=== PATIENT | male | born 1960 | race American Indian/Alaskan Native ===

== ENCOUNTER 2016-06-11 10:48 | Inpatient (IN) | payer SELFPAY ==
[2016-06-11] MEDS ORDERED: PEPCID IV ONE (11:08)
--- NOTE | 2016-06-11 11:11 | Emergency Department Report ---
HPI - General Chief Complaint: Allergic Reaction Time Seen by Provider: 06/11/16 11:04 - HPI HPI: 56-year-old male presents to the emergency department through triage, driving himself in to be seen, with complaint of facial and lip swelling that began this morning. He denies any involvement of the tongue, throat or any feelings of shortness of breath and he does not have any problem swallowing or dealing with his own secretions. He denies any chest pain, fever, nausea or vomiting. The patient is on lisinopril for blood pressure. He denies any other past medical history. He does not have a primary care doctor. He took 50 mg oral Benadryl at about 9:30 PM this morning as treatment without relief. No recent travel or sick contacts at home. ED Review of Systems ROS: Stated complaint: ALLERGIC REACTION Other details as noted in HPI Comment: All other systems reviewed and negative Constitutional: denies: chills, fever Eyes: denies: eye pain, eye discharge, vision change ENT: other (facial and lip swelling). denies: throat pain Respiratory: denies: cough, shortness of breath, wheezing Cardiovascular: denies: chest pain, palpitations Gastrointestinal: denies: abdominal pain, nausea, diarrhea Genitourinary: denies: urgency, dysuria Musculoskeletal: denies: back pain, joint swelling, arthralgia Skin: pruritus, other (facial and lip swelling). denies: rash Neurological: denies: headache, weakness, paresthesias Physical Exam - Physical Exam Vital Signs: Vital Signs 06/11/16 10:53 Temperature 98.2 F Pulse Rate 92 H Respiratory 16 Rate Blood Pressure 163/100 O2 Sat by Pulse 99 Oximetry Physical Exam: GENERAL: The patient is well-developed well-nourished. HEENT: Normocephalic. Atraumatic. Extraocular motions are intact. Patient has moist mucous membranes. Pupils equal reactive to light bilaterally. No nystagmus. Oropharynx is clear. No drooling or trismus. Patient has moderate to severe swelling of the upper and lower lips as well as to the right side of the face on the cheek. NECK: Supple. Trachea is midline. CHEST/LUNGS: Clear to auscultation. There is no respiratory distress noted. HEART/CARDIOVASCULAR: Regular. There is no tachycardia. There is no gallop rub or murmur. ABDOMEN: Abdomen is soft, nontender. Patient has normal bowel sounds. There is no abdominal distention. SKIN: Patient has moderate to severe swelling of the upper and lower lips as well as to the right side of the face on the cheek. NEURO: The patient is awake, alert, and oriented. The patient is cooperative. The patient has no focal neurologic deficits. The patient has normal speech. MUSCULOSKELETAL: There is no tenderness or deformity. There is no limitation range of motion. There is no evidence of acute injury. ED Course Vital Signs 06/11/16 10:53 Temperature 98.2 F Pulse Rate 92 H Respiratory 16 Rate Blood Pressure 163/100 O2 Sat by Pulse 99 Oximetry ED Medical Decision Making - Lab Data Result diagrams: 06/11/16 11:20 06/11/16 11:20 - Medical Decision Making 56-year-old male presents to the emergency department with swelling of the face and lips that is most likely angioedema from lisinopril the patient just recently started taking last Wednesday. So far no involvement of the tongue or throat. Vital signs are stable. Given a dose of a pressure medication as he has some hypertension and will no longer be taking the lisinopril. However the patient will be admitted for further evaluation and monitoring to make sure that the angioedema does not progress to involve the airway. Patient accepted for admission by the hospitalist, Dr. Scales. - Differential Diagnosis anaphylaxis, angioedema, dental abscess Critical Care Time: No Critical care attestation.: If time is entered above; I have spent that time in minutes in the direct care of this critically ill patient, excluding procedure time. ED Disposition Clinical Impression: Angioedema Qualifiers: Encounter type: initial encounter Qualified Code(s): T78.3XXA - Angioneurotic edema, initial encounter Hypertension Qualifiers: Hypertension type: essential hypertension Qualified Code(s): I10 - Essential ( primary) hypertension Disposition: OP ADMITTED IP TO THIS HOSP Is pt being admited?: Yes Condition: Stable Instructions: Hypertension (ED) Time of Disposition: 13:13
[2016-06-11 11:31] LABS: Basophils % (Auto) 1.5 % (0.0-1.8); Eosinophils % (Auto) 2.3 % (0.0-4.3); Hemoglobin 10.3 gm/dl (11.8-15.2); Mean Corpuscular HGB Conc 33 % (32-34); Mean Corpuscular Hemoglobin 37 pg (28-32); Mean Corpuscular Volume 111 fl (84-94); Platelet Count 318 K/mm3 (140-440); Red Blood Count 2.79 M/mm3 (3.65-5.03); Red Cell Distribution Width 18.5 % (13.2-15.2)
--- NOTE | 2016-06-11 11:48 | Admit Criteria Form ---
Admission Criteria Documentation: HEAD AND NECK DISEASE [facility] Clinical Indications for Admission to Inpatient Care ( Place 'X' for any and all applicable criteria): Hospital admission is needed for appropriate care of the patient because of ANY ONE of the following (1)(2): [ ]I. Severe sinusitis as indicated by ANY ONE of the following (6)(13)(21) [ ]a) Suspected GLASS PRESSER infection [ ]b) Bacteremia [ ]c) Hemodynamic instability [ ]d) Outpatient and observation care antibiotic treatment have failed or are not considered appropriate [ ]e) Surgical drainage needed that cannot be performed on an outpatient basis or observation. setting [ ]f) Suspected orbital involvement [ ]II. Acute glaucoma unresponsive to emergency treatment that requires medication or other treatment beyond the scope of observation care (1) [ ]III. Severe eye infection or inflammation (eg, uveitis) which is unresponsive to emergency treatment and requires medication or other treatment beyond the scope of observation care (1)(2)(3)(4) [ ]IV. Severe epistaxis requiring posterior packing (5)(6) [ ]V. Acute bacterial labyrinthitis(6)(7) [ ]. Viral labyrinthitis with symptoms uncontrollable on an outpatient or observation care basis (6)(7) [ ]VII. Severe necrotizing external otitis unresponsive to outpatient and observation care treatment(6) [ ]VIII. Otitis media requiring treatment beyond the scope of outpatient and observation care, as indicated by presence or persistence of ANY ONE of the following(6)(8)(9): [ ]a) Hemodynamic instability [ ]b) Mastoiditis [ ]c) Suspected GLASS PRESSER infection [ ]d) Bacteremia [ ]e) Surgical drainage needed that cannot be performed as an outpatient. or in an observation setting. [ ]IX. Epiglottitis or supraglottitis(6)(11)(12)(13)(14) [ ]X. Stridor or laryngospasm (unresponsive to emergency management) (6)(11)( 12)(13)(14) [ ]XI. Acute pharyngitis or tonsillitis and ANY ONE of the following (14)(15)( 16): [ ]a) Hemodynamic instability remaining after emergency or observation level care (as appropriate) [ ]b) Surgical drainage needed that cannot be performed in outpatient or observation setting [ ]c) Mediastinitis [ ]d) Thrombophlebitis of internal jugular vein (Lemierre syndrome) [ ]XII. Sialoadenitis and ANY ONE of the following (17) (18) [ ]a) Hemodynamic instability remaining after emergency or observation level care(as appropriate) [ ]b) Surgical drainage needed that cannot be performed in outpatient or observation setting [ ]XIII. Airway blockage or inability to swallow (6)(12)(19)(20) [ ]XIV.Complicated infection indicated by ANY ONE of the following(6)(13)(21)(22 ): [ ]a) Abscess or swelling causing airway difficulty(12) [ ]b) Bacteremia [ ]c) Hemodynamic instability [ ]d) Suspected GLASS PRESSER infection [ ]e) Outpatient and observation care antibiotic treatment have failed or are not considered appropriate [ ]f) Surgical drainage needed that cannot be performed on an outpatient basis or observation setting [ ]g) Other management need that cannot be performed in outpatient or observation setting: [ ]XV. Severe trauma requiring inpatient medical treatment of eye, head, pharynx, or airway (1)(23)([phone]) [ ]XVI. Ischemic optic neuropathy(11) [X]XVII.Head or Neck Disease condition and ANY ONE of the following: [X]a) Symptom or finding for which emergency and observation care have failed or are not considered appropriate (Also use General Criteria: Observation Care as appropriate) [ ]b) Presence of ANY ONE of the following: [ ]i) A General Admission Criteria [ ]ii) A Pediatric General Admission Criteria The original [facility] content created by [facility] [employer] has been revised. The portions of the content which have been revised are identified through the use of italic text or in bold, and [facility] has neither reviewed nor approved the modified material. All other unmodified content is copyright [facility]. Please see references footnoted in the original [facility] edition 2016
[2016-06-11 11:51] LABS: Anion Gap 15 mmol/L; Blood Urea Nitrogen 6 mg/dL (9-20); Calcium 8.9 mg/dL (8.4-10.2); Carbon Dioxide 27 mmol/L (22-30); Chloride 102.8 mmol/L (98-107); Glucose 94 mg/dL (75-100); Potassium 3.7 mmol/L (3.6-5.0); Sodium 141 mmol/L (137-145)
[2016-06-11] MEDS ORDERED: NACL 0.9% 1000 ML 1,000 ML IV ONE (11:53)
[2016-06-11] MEDS ORDERED: APRESOLINE IV ONE (11:53)
--- NOTE | 2016-06-11 12:30 | History and Physical Report ---
History of Present Illness Chief complaint: My face is swollen History of present illness: 56 YO Male with HTN, presents to ED for evaluation. Pt states that he has experienced lip swelling that began this morning around 0900 hrs. Pt denies any swelling of the tongue, throat, drooling or any shortness of breath and he does not have any problem swallowing or dealing with his own secretions. PT denies chest pain, fever, nausea or vomiting, palpitations, syncope, or recent ill contacts. Past History Past Medical History: hyperthyroidism Past Surgical History: No surgical history, Other (reviewed) Social history: single. denies: smoking, alcohol abuse, prescription drug abuse Family history: diabetes, hypertension Medications and Allergies Allergies Allergy/AdvReac Type Severity Reaction Status Date / Time lisinopril Allergy Angioedema Verified 06/11/16 10:53 Active Meds: Active Medications Sodium Chloride (Nacl 0.9% 1000 Ml) 1,000 mls @ 125 mls/hr IV ONCE ONE Stop: 06/11/16 19:52 Last Admin: 06/11/16 12:07 Dose: 125 mls/hr Review of Systems All systems: negative Constitutional: other (facial swelling) Exam - Constitutional Vitals: Temp Pulse Resp BP Pulse Ox 98.2 F 85 16 168/104 99 06/11/16 10:53 06/11/16 12:06 06/11/16 10:53 06/11/16 12:06 06/11/16 10:53 General appearance: Present: no acute distress, well-nourished, other (Right facial swelling with right lip swelling) - EENT Eyes: Present: PERRL ENT: hearing intact, clear oral mucosa - Neck Neck: Present: supple, normal ROM - Respiratory Respiratory effort: normal Respiratory: bilateral: CTA - Cardiovascular Heart Sounds: Present: S1 & S2. Absent: rub, click - Extremities Extremities: pulses symmetrical, No edema Peripheral Pulses: within normal limits - Abdominal General gastrointestinal: Present: soft, non-tender, non-distended, normal bowel sounds Male genitourinary: Present: normal - Integumentary Integumentary: Present: clear, warm, dry - Musculoskeletal Musculoskeletal: gait normal, strength equal bilaterally - Psychiatric Psychiatric: appropriate mood/affect, intact judgment & insight - Neurologic Neurologic: CNII-XII intact, moves all extremities Results - Labs CBC & Chem 7: 06/11/16 11:20 04/13/17 11:20 Labs: Abnormal lab results 06/11/16 06/11/16 Range/Units 11:20 11:20 RBC 2.79 L (3.65-5.03) M/mm3 Hgb 10.3 L (11.8-15.2) gm/dl Hct 31.0 L (35.5-45.6) % MCV 111 H (84-94) fl MCH 37 H (28-32) pg RDW 18.5 H (13.2-15.2) % [place] % (Auto) 12.0 H (0.0-7.3) % BUN 6 L (9-20) mg/dL Creatinine 0.6 L (0.8-1.5) mg/dL Assessment and Plan - Patient Problems (1) Angioedema Current Visit: Yes Status: Acute Qualifiers: Encounter type: initial encounter Qualified Code(s): T78.3XXA - Angioneurotic edema, initial encounter Plan to address problem: Steroids, supportive care, aspiration precautions, d/c lisinopril. (2) Accelerated hypertension Current Visit: Yes Status: Acute (3) Accelerated hypertension Current Visit: Yes Status: Acute Plan to address problem: Monitor BP q shift, hydralazine prn, amlodipine scheduled. (4) DVT prophylaxis Current Visit: Yes Status: Acute
[2016-06-11] MEDS ORDERED: DULCOLAX PR PRN (12:35)
[2016-06-11] MEDS ORDERED: DUONEB 0.5 MG-3 MG/3 ML SOLN IH PRN (12:35)
[2016-06-11] MEDS ORDERED: ZOFRAN IV PRN (12:35)
[2016-06-11] MEDS ORDERED: TYLENOL PO PRN (12:35)
[2016-06-11] MEDS ORDERED: MILK OF MAGNESIA PO PRN (12:35)
[2016-06-11] MEDS ORDERED: APRESOLINE IV PRN (12:38)
[2016-06-11] MEDS ORDERED: PROVENTIL IH PRN (12:52)
[2016-06-12] MEDS: NORVASC PO SCH (10:06)
--- NOTE | 2016-06-12 12:13 | Progress Note ---
Assessment and Plan Assessment and plan: Patient is 56-year-old man history hypertension lisinopril presents with facial swelling. He's been treated with IV steroids but swelling still present. -Angioedema: Stop lisinopril and observe -Accelerated hypertension: Start Norvasc -Anemia macrocytosis: Follow-up [facility] Anticipate discharge tomorrow if his swellings improve History Interval history: Patient seen and examined. Follow up on face swelling which is still present. No throat swelling. Facial swelling which is still present Overnight uneventful. No cp, sob, n/v or severe headaches. Imaging, old records, testing, labs, nursing notes reviewed. Plan discussed with patient. Hospitalist Physical - Physical exam Narrative exam: GEN: WDWN, NAD, AWAKE, ALERT, ORIENTATED 3 HEENT: Left-sided face and lips are swollen PERRL, EOMI, OP CLEAR NECK: SUPPLE, NO THYROMEGALY, NO JVD, NO LAD CVS: RRR, NORMAL S1S2 LUNGS/CHEST: CTA B, NORMAL CHEST EXPANSION B, GOOD AIR ENTRY B ABD: SOFT NTND, GBS, NO REBOUND OR GUARDING EXT/SKIN: NO SIGNIFICANT EDEMA OR RASH MSK: FROM X 4 EXTREMITIES NEURO: CN 2-12 GROSSLY INTACT, NO new FOCAL DEFICITS PSY: CALM - Constitutional Vitals: Temp Pulse Resp BP Pulse Ox 98.8 F 99 H 18 158/88 98 06/12/16 07:45 06/12/16 07:45 06/12/16 07:45 06/12/16 07:45 06/12/16 09:15 General appearance: Present: no acute distress, well-nourished, other (Right facial swelling with right lip swelling) Results - Labs CBC & Chem 7: 06/11/16 11:20 06/11/16 11:20 Labs: Laboratory Last Values WBC 7.0 K/mm3 (4.5-11.0) 06/11/16 11:20 RBC 2.79 M/mm3 (3.65-5.03) L 06/11/16 11:20 Hgb 10.3 gm/dl (11.8-15.2) L 06/11/16 11:20 Hct 31.0 % (35.5-45.6) L 06/11/16 11:20 MCV 111 fl (84-94) H 06/11/16 11:20 MCH 37 pg (28-32) H 06/11/16 11:20 MCHC 33 % (32-34) 06/11/16 11:20 RDW 18.5 % (13.2-15.2) H 06/11/16 11:20 Plt Count 318 K/mm3 (140-440) 06/11/16 11:20 Lymph % (Auto) 18.8 % (13.4-35.0) 06/11/16 11:20 [place] % (Auto) 12.0 % (0.0-7.3) H 06/11/16 11:20 Eos % (Auto) 2.3 % (0.0-4.3) 06/11/16 11:20 Baso % (Auto) 1.5 % (0.0-1.8) 06/11/16 11:20 Lymph # 1.3 K/mm3 (1.2-5.4) 06/11/16 11:20 [place] # 0.8 K/mm3 (0.0-0.8) 06/11/16 11:20 Eos # 0.2 K/mm3 (0.0-0.4) 06/11/16 11:20 Baso # 0.1 K/mm3 (0.0-0.1) 06/11/16 11:20 Seg Neutrophils % 65.4 % (40.0-70.0) 06/11/16 11:20 Seg Neutrophils # 4.6 K/mm3 (1.8-7.7) 06/11/16 11:20 Sodium 141 mmol/L (137-145) 06/11/16 11:20 Potassium 3.7 mmol/L (3.6-5.0) 06/11/16 11:20 Chloride 102.8 mmol/L (98-107) 06/11/16 11:20 Carbon Dioxide 27 mmol/L (22-30) 06/11/16 11:20 Anion Gap 15 mmol/L 06/11/16 11:20 BUN 6 mg/dL (9-20) L 06/11/16 11:20 Creatinine 0.6 mg/dL (0.8-1.5) L 06/11/16 11:20 Estimated GFR > 60 ml/min 06/11/16 11:20 BUN/Creatinine Ratio 10.00 % 06/11/16 11:20 Glucose 94 mg/dL (75-100) 06/11/16 11:20 Calcium 8.9 mg/dL (8.4-10.2) 06/11/16 11:20
[2016-06-13 06:31] LABS: Hematocrit 35.1 % (35.5-45.6); Hemoglobin 11.4 gm/dl (11.8-15.2); Mean Corpuscular HGB Conc 33 % (32-34); Mean Corpuscular Hemoglobin 36 pg (28-32); Mean Corpuscular Volume 110 fl (84-94); Platelet Count 332 K/mm3 (140-440); Red Blood Count 3.19 M/mm3 (3.65-5.03); Red Cell Distribution Width 18.2 % (13.2-15.2); White Blood Count 13.8 K/mm3 (4.5-11.0)
[2016-06-13 06:33] LABS: Anion Gap 19 mmol/L; BUN/Creatinine Ratio 16.66; Blood Urea Nitrogen 10 mg/dL (9-20); Calcium 9.1 mg/dL (8.4-10.2); Carbon Dioxide 24 mmol/L (22-30); Chloride 103.4 mmol/L (98-107); Glucose 145 mg/dL (75-100); Potassium 3.7 mmol/L (3.6-5.0); Sodium 143 mmol/L (137-145)
[2016-06-13 08:25] VITALS: BP 182/103
[2016-06-13] MEDS: NORVASC PO SCH (09:19)
--- NOTE | 2016-06-13 11:17 | Discharge Summary ---
Providers - Providers Date of Admission: 06/11/16 12:35 Date of discharge: 06/13/16 Attending physician: ROQUE RAMIREZ Primary care physician: GUICHO LEON MD Hospitalization Condition: Stable Hospital course: Patient is 56-year-old man history hypertension lisinopril presents with facial swelling. He's been treated with IV steroids but swelling still present. -Angioedema: Stop lisinopril and observe -Accelerated hypertension: Started Norvasc -Anemia macrocytosis: Follow-up [facility] Disposition: STILL A PATIENT Time spent for discharge: 31 minutes Core Measure Documentation - Palliative Care Palliative Care/ Comfort Measures: Not Applicable - Core Measures Any of the following diagnoses?: none - VTE Discharge Requirements Deep Vein Thrombosis/Pulmonary Embolism Present on Admission: No Has pt received <5 days of overlap therapy or INR<2.0: No Anticoagulant overlap therapy prescribed at discharge: No Contraindication No Overlap Therapy order at DC: Not Indicated Exam - Physical Exam Narrative exam: GEN: WDWN, NAD, AWAKE, ALERT, ORIENTATED 3 HEENT: Left-sided face and lips swelling resolving, PERRL, EOMI, OP CLEAR NECK: SUPPLE, NO THYROMEGALY, NO JVD, NO LAD CVS: RRR, NORMAL S1S2 LUNGS/CHEST: CTA B, NORMAL CHEST EXPANSION B, GOOD AIR ENTRY B ABD: SOFT NTND, GBS, NO REBOUND OR GUARDING EXT/SKIN: NO SIGNIFICANT EDEMA OR RASH MSK: FROM X 4 EXTREMITIES NEURO: CN 2-12 GROSSLY INTACT, NO new FOCAL DEFICITS PSY: CALM - Constitutional Vitals: Temp Pulse Resp BP Pulse Ox 97.5 F L 84 20 182/103 99 06/13/16 08:00 06/13/16 08:00 06/13/16 08:00 06/13/16 08:00 06/13/16 10:00 Plan Activity: advance as tolerated (no strenous activites until cleared by PCP. ) Diet: low salt Additional Instructions: No Lisinopril Follow up with: PRIMARY CARE, [Primary Care Provider] - 3-5 Days Prescriptions: methylPREDNISolone [Medrol Dose Jeremías] 1 dose PO DAILY #1 pack
== END 2016-06-13 13:15 | disposition home or self-care (01) | DRG 916 ==
LOC: ED 10:48 → 3A 12:35
PROVIDERS: ADMIT Internal Medicine; ATTEND Internal Medicine
DX: T78.3XXA Angioneurotic edema, initial encounter (principal); I10 Essential (primary) hypertension; E05.90 Thyrotoxicosis, unspecified without thyrotoxic crisis or storm; D53.9 Nutritional anemia, unspecified; Z88.8 Allergy status to other drugs, medicaments and biological substances; Z83.3 Family history of diabetes mellitus; Z82.49 Family history of ischemic heart disease and other diseases of the circulatory system
CPT/HCPCS: 36415; 80048; 85025; 85027; 96374; 96375; 96376; J0360; J2920; J2930; J7030

== ENCOUNTER 2018-07-27 10:28 | Day surgery (SDC) | payer OTHER ==
--- NOTE | 2018-07-27 07:45 | Anesthesia Consultation ---
Anesthesia Consult and Med Hx Date of service: 07/27/18 - Airway Anesthetic Teeth Evaluation: Good ROM Head & Neck: Adequate Mental/Hyoid Distance: Adequate Mallampati Class: Class I Intubation Access Assessment: Good - Pulmonary Exam CTA: Yes - Cardiac Exam Cardiac Exam: RRR - Pre-Operative Health Status ASA Pre-Surgery Classification: ASA3 Proposed Anesthetic Plan: MAC - Pulmonary Hx Asthma: No COPD: No Hx Pneumonia: No - Cardiovascular System Hx Hypertension: Yes - Endocrine Hx End Stage Renal Disease: No Hx Non-Insulin Dependent Diabetes: Yes Hx Hyperthyroidism: Yes
--- NOTE | 2018-07-27 07:46 | Anesthesia Day of Surgery ---
Anesthesia Day of Surgery - Day of Surgery Patient Examined: Yes Patient H&P Reviewed: Yes Patient is NPO: Yes Beta Blockers: No Cardiac Clearance: No Pulmonary Clearance: No
[~2018-07-27 10:28] MED LIST: NACL 0.9% 1000 ML 1,000 ML IV SCH
[2018-07-27] MEDS ORDERED: DIPRIVAN 10 MG/ML IV ONE ×3 (12:43→12:44)
[2018-07-27] MEDS ORDERED: VERSED IV ONE (12:43)
[2018-07-27] MEDS ORDERED: WATER FOR IRRIG STERILE IR ONE (12:46)
[2018-07-27] MEDS ORDERED: WATER FOR IRRIG STERILE ONE (12:47)
--- NOTE | 2018-07-27 13:01 | Post Operative Note ---
Date of procedure: 07/27/18 Pre-op diagnosis: Heme + stool Post-op diagnosis: same (internal hemorrhoids, small tics) Findings: 1. Internal hemorrhoids 2. Diverticulosis Procedure: Colonoscopy Anesthesia: MAC Surgeon: BEE MAR Estimated blood loss: none Pathology: none Condition: stable Disposition: same day
--- NOTE | 2018-07-27 13:03 | Operative Report ---
Operative Report Operative Report: Colonoscopy Procedure Note Date of procedure: 07/27/2018 Endoscopist: Asim Bryant Pre-op diagnosis: Heme positive stool Post-op diagnosis: Internal hemorrhoids, diverticulosis Anesthesia: MAC Complications: No immediate complications Estimated blood loss: None Procedure: After consent was obtained, the patient was placed in the left lateral decubitus position. The olympus colonoscope was inserted into the patient's rectum under direct vision, and advanced to the cecum without difficulty. The patient tolerated the procedure well. The views of the mucosa were fair/adequate. The quality of prep was fair. The patient's vital signs were monitored continuously throughout the procedure. Findings: There were a few small diverticula in the left side of the colon. Large internal hemorrhoids were visualized on retroflexion view. Otherwise, the colon appeared normal. Impression: 1. Diverticulosis 2. Internal hemorrhoids Recommendations: -high fiber diet daily -repeat colonoscopy in 5-10 years for screening purposes
[2018-07-27 13:52] VITALS: BP 128/80
== END 2018-07-27 13:55 | disposition home or self-care (01) ==
LOC: GIO 10:28
PROVIDERS: ATTEND Internal Medicine Gastroenterology
DX: K57.30 Diverticulosis of large intestine without perforation or abscess without bleeding (principal); K64.8 Other hemorrhoids; I10 Essential (primary) hypertension; E78.00 Pure hypercholesterolemia, unspecified; E11.9 Type 2 diabetes mellitus without complications; F17.210 Nicotine dependence, cigarettes, uncomplicated; E05.90 Thyrotoxicosis, unspecified without thyrotoxic crisis or storm; Z98.890 Other specified postprocedural states; Z79.82 Long term (current) use of aspirin; Z79.899 Other long term (current) drug therapy; Z88.8 Allergy status to other drugs, medicaments and biological substances
CPT/HCPCS: 45378; J2250; J2704; J7030